=== PATIENT | male | born 1975 | race Caucasian/White ===

== ENCOUNTER 2019-01-07 11:54 | Day surgery (SDC) | payer OTHER ==
[2019-01-07] VITALS (9 sets, daily range): BP systolic 124–166; BP diastolic 82–112; PULSE 52–62; TEMP 98.1
[~2019-01-07] VITALS: Ht 180.3 cm; Wt 85.4 kg
[2019-01-07 12:26] LABS: HEMATOCRIT 51.4 % (42.0-52.0); HEMOGLOBIN 17.4 g/dl (13.5-18.0); MEAN CELL VOLUME 91 fl (80.0-100.0); MEAN CORPUSCULAR HEMOGLOBIN 31 pg (27.0-31.0); MEAN CORPUSCULAR HGB CONC 34 g/dl (33.0-37.0); MEAN PLATELET VOLUME 9.9 fl (7.4-10.4); PLATELET COUNT 280 K/mm3 (130-400); RED BLOOD COUNT 5.66 M/mm3 (4.20-5.60); REDCELL DISTRIBUTION WIDTH-CV 13.5 % (11.5-14.5)
[2019-01-07] MEDS ORDERED: NEURONTIN600 MG/TAB PO (12:29)
[2019-01-07 12:30] LABS: INR 0.9 (0.8-3.0); PROTHROMBIN TIME 10.8 SECONDS (9.7-12.8)
[2019-01-07] MEDS ORDERED: NORCO 325 MG-101 TAB PO (12:30)
[2019-01-07] MEDS ORDERED: ASPIRIN E.C. 8181 MG PO (12:30)
[2019-01-07] MEDS ORDERED: PRINZIDE 12.5 M1 TAB PO (12:31)
[2019-01-07] MEDS ORDERED: ERGOCALCIFER50000 IU PO (12:33)
[2019-01-07 12:36] LABS: CALCIUM 8.8 mg/dL (8.4-10.2); CREATININE, serum 0.79 (0.66-1.25); POTASSIUM 4.4 mmol/L (3.4-5.0)
--- NOTE | 2019-01-07 13:31 | NUR ---
ALL MEDICATIONS GIVEN VORB WITH MD. SEE MERGE FOR ALL MEDICATION ADMIN TIMES. SEE MERGE FOR ALL RASS ASSESSMENTS DURING AND POST PROCEDURE. POSITIVE BARBEAU'S TEST IN THE RIGHT WRIST, RADIAL PULSE +1.
--- NOTE | 2019-01-07 14:09 | NUR ---
Back from laboratory inspector. Report from Lalo FRANCISCO. Tband to right wrist with 12 cc air, pulses noted and cap refill < 3 secs. Family bedside. VS at baseline
--- NOTE | 2019-01-07 14:10 | NUR ---
Patient transported back to room 12 at this time. Patient hooked up to monitoring equipment. VS stable. Patient denies any pain at this time. NOLAN Dempsey at bedside. Visualized TR band with RN. TR band remains in place with 12 ml of air in the band. No oozing or hematoma noted at this time. Site is soft and nontender. Discussed wrist restrictions with family and patient at this time. Bed in locked and in lowest position. Call light within reach.
--- NOTE | 2019-01-07 15:44 | NUR ---
4 CC air out of Tband. No bleeding noted, pt put arm to side during BP check and VS more stable
--- NOTE | 2019-01-07 16:00 | NUR ---
Air completly deflated from Tband 12 cc. Tband discontinued and pressure dressing applied. INT discontinued intact.
--- NOTE | 2019-01-07 16:15 | NUR ---
Discharge instructions given. Transferred to private car by jose
== END 2019-01-07 16:20 | disposition home or self-care (01) ==
LOC: COL.CAR 11:54
PROVIDERS: Internal Medicine Cardiovascular Disease
DX: I25.118 Atherosclerotic heart disease of native coronary artery with other forms of angina pectoris (principal); I25.2 Old myocardial infarction; I10 Essential (primary) hypertension; F17.210 Nicotine dependence, cigarettes, uncomplicated; Z83.3 Family history of diabetes mellitus; Z82.49 Family history of ischemic heart disease and other diseases of the circulatory system; Z79.82 Long term (current) use of aspirin
CPT/HCPCS: J1644; J2250; J3010; Q9967